=== PATIENT | female | born 1950 | race Caucasian/White ===

== ENCOUNTER 2022-10-20 11:11 | Emergency (ER) | payer MEDICARE, MEDICAID, SELFPAY ==
--- NOTE | ~2022-10-20 | CT_ITS ---
EXAMINATION: CT HEAD WITHOUT CONTRAST CLINICAL INFORMATION: Status post fall with head strike, rule out intracranial abnormality. COMPARISON: None available. TECHNIQUE: Contiguous axial imaging was performed from the skull base to vertex without intravenous administration of contrast. Coronal and sagittal reformatted images were obtained. This CT examination was performed using dose optimization techniques as appropriate, variously including the following: *Automated exposure control *Adjustment of mA and/or kV according to patient size (this includes techniques or standardized protocols for targeted exams where dose is matched to indication/reason for exam; i.e. extremities or head) *Use of iterative reconstruction technique DLP: 615.32 mGy-cm FINDINGS: There is mild widening of the cortical sulci and associated ventriculomegaly. The lateral ventricles are symmetrical. The third and fourth ventricles are in their normal midline position. The basilar and prepontine cisterns are unremarkable. Coarse physiologic calcifications are seen in the basal ganglia bilaterally. There is no acute intra or extracerebral abnormality. There is no mass effect or midline shift. Sections through the bony calvarium are unremarkable. The orbits are intact. The paranasal sinuses are clear. The mastoid air cells are clear. CT/CT head/brain wo IV con IMPRESSION: No acute intracranial pathology.
--- NOTE | ~2022-10-20 | XR_ITS ---
EXAMINATION: XR WRIST, RIGHT CLINICAL INFORMATION: Fall, trauma, pain COMPARISON: Radiographs right wrist 01/02/2010 TECHNIQUE: Right wrist is imaged in 4 views. FINDINGS: There is no fracture or dislocation. The ulnar variance is neutral. There is a small corticated ossicle just distal to the ulnar styloid, similar to remote prior exams. There are progressive osteoarthritic changes involving the first carpometacarpal joint. XR/XR wrist RT min 3V IMPRESSION: -No fracture or dislocation. -Osteoarthritis first carpometacarpal joint.
--- NOTE | ~2022-10-20 | CT_ITS ---
EXAMINATION: CT CERVICAL SPINE WITHOUT CONTRAST CLINICAL INFORMATION: Status post fall with head strike and neck pain. COMPARISON: None available. TECHNIQUE: Multiple axial images of the cervical spine were obtained without the administration of intravenous contrast. Coronal and sagittal reformatted images were obtained. This CT examination was performed using dose optimization techniques as appropriate, variously including the following: *Automated exposure control *Adjustment of mA and/or kV according to patient size (this includes techniques or standardized protocols for targeted exams where dose is matched to indication/reason for exam; i.e. extremities or head) *Use of iterative reconstruction technique DLP: 333.76 mGy-cm FINDINGS: There is straightening of the normal cervical lordosis with normal spinal alignment. Moderate to severe degenerative disc disease is seen at C5-6 and C6-7 with mild bilateral neural foraminal narrowing. The vertebral bodies are intact. The odontoid process is intact with moderate articulating degenerative changes. Mild multilevel bilateral facet arthropathy is seen. The spinous processes are intact. The cervical soft tissues are unremarkable. No lymphadenopathy. Incidental multinodular enlarged thyroid gland with dominant nodule in the lower pole measuring up to 3.6 cm (image 4, series 15). Small calcified and noncalcified nodules are seen laterally in the right apex measuring up to 0.[address]/CT cervical spine wo IV con IMPRESSION: 1. Straightening of the normal cervical lordosis may be secondary to positioning and/or muscle spasm. 2. Multilevel degenerative changes in the cervical spine without acute abnormality. 3. Incidental multinodular enlarged thyroid gland with dominant nodule in the lower pole. This is amenable to further evaluation with nonemergent thyroid ultrasound. 4. Small calcified and noncalcified nodules in the right apex measuring up to 0.5 cm. Following Fleischner Society guidelines, no imaging follow-up is recommended at this time.
[2022-10-20 11:28] VITALS: BP 168/74; PULSE 69; RESP 99; TEMP 36.6; O2SAT 98; BMI 31.1
--- NOTE | 2022-10-20 11:28 | ED_ITS ---
HPI - Fall General Chief Complaint: Fall <ROBE Whitlock Last Filed: 10/20/22 11:31> Stated Complaint: R wrist injury/ head injury <ROBE Whitlock Last Filed: 10/20/22 11:31> Time Seen by Provider: 10/20/22 11:56 <ROBE Whitlock Last Filed: 10/20/22 11:31> Source: patient <ROBE Morrison Last Filed: 10/20/22 14:29> Mode of arrival: ambulatory <ROBE Morrison Last Filed: 10/20/22 14:29> Limitations: no limitations <ROBE Morrison Last Filed: 10/20/22 14:29> History of Present Illness HPI Narrative: Patient is a 72 year old assigned female at with no reported medical history presenting to the emergency department today with right wrist pain aftera fall. Patient states that she missed a step and fell. Patient states that her right wrist and the right side of her head hurt. Patient denies any loss of consciousness. Patient denies any dizziness, lightheadedness, abdominal pain, nausea, vomiting, fever, chills, blurry vision, double vision, loss of vision, chest pain, difficulty breathing, shortness of breath, back pain, night sweats, pain with urination, increased urinary frequency, increased urinary urgency, blood in her urine or stool, syncope or a near syncopal episode, bowel incontinence, bladder incontinence, bowel retention, bladder retention, or any other complaints at this time. <ROBE Morrison Last Filed: 10/20/22 14:29> Onset (ago): minute(s) <ROBE Morrison Last Filed: 10/20/22 14:29> Fall from: standing <ROBE Morrison Last Filed: 10/20/22 14:29> Loss of consciousness: none <ROBE Morrison Last Filed: 10/20/22 14:29> Prolonged down time: no <ROBE Morrison Last Filed: 10/20/22 14:29> Context: tripped/slipped <ROBE Morrison Last Filed: 10/20/22 14:29> Related Data Allergies/Adverse Reactions: Allergies Allergy/AdvReac Type Severity Reaction Status Date / Time No Known Allergies Allergy Verified 10/20/22 11:33 <ROBE Whitlock - Last Filed: 10/20/22 11:31> Review of Systems Constitutional: Constitutional: Reports no additional constitutional complaints, Denies chills, Denies fever(s) and Denies night sweats <ROBE Morrison Last Filed: 10/20/22 14:29> Eyes: Eyes: Reports no additional eye complaints, Denies blurry vision, Denies change in vision, Denies diplopia, Denies eye discharge, Denies loss of vision and Denies eye pain <ROBE Morrison - Last Filed: 10/20/22 14:29> ENT: Denies dizziness <ROBE Morrison Last Filed: 10/20/22 14:29> Cardiovascular: Cardiovascular: Reports no additional cardiovascular complaints, Denies chest pain, Denies lightheadedness, Denies Loss of Consciousness and Denies dyspnea <ROBE Morrison Last Filed: 10/20/22 14:29> Respiratory: Respiratory: Reports no additional respiratory complaints and Denies dyspnea <ROBE Morrison - Last Filed: 10/20/22 14:29> Gastrointestinal: Gastrointestinal: Reports no additional gastrointestinal complaints, Denies abdominal pain, Denies melena, Denies hematochezia, Denies change in bowel habits and Denies change in stool character <ROBE Morrison Last Filed: 10/20/22 14:29> Genitourinary: Genitourinary: Denies hematuria, Denies urinary frequency, Denies dysuria, Denies urinary incontinence, Denies urinary hesitancy and Denies urinary urgency <ROBE Morrison Last Filed: 10/20/22 14:29> Musculoskeletal: Musculoskeletal: Reports no additional musculoskeletal complaints, Denies numbness and Denies tingling <ROBE Morrison Last Filed: 10/20/22 14:29> Comments: right wrist pain <ROBE Morrison Last Filed: 10/20/22 14:29> Neurologic: Denies dizziness, Denies loss of vision, Denies numbness and Denies tingling <ROBE Morrison Last Filed: 10/20/22 14:29> Psychiatric: Psychiatric: Reports no additional psychiatric complaints <ROBE Morrison - Last Filed: 10/20/22 14:29> Endocrine: Endocrine: Reports no additional endocrine complaints <ROBE Morrison - Last Filed: 10/20/22 14:29> Hematologic/Lymphatic: Hematologic/Lymphatic: Reports no additional hematologic/lymphatic complaints <ROBE Morrison - Last Filed: 10/20/22 14:29> Allergic/Immunologic: Allergic/Immunologic: Reports no additional allergic/immunologic complaints <ROBE Morrison - Last Filed: 10/20/22 14:29> PMFSH Past Medical History Attestation statement: The following information was validated with the patient. <ROBE Morrison - Last Filed: 10/20/22 14:29> Source: old records reviewed and nursing notes reviewed <ROBE Morrison - Last Filed: 10/20/22 14:29> Social History Social History: Social History Alcohol intake: never Smoked in Last 30 Days: No Use of substances other than those prescribed or required for medical reasons: No Advance Directives: Yes Advance Directives Information Provided: No Advance Directives on File: No <ROBE Whitlock - Last Filed: 10/20/22 11:31> Physical Exam Vital Signs: Vital Signs: Last Vital Signs Temp 98 F 10/20/22 11:28 Pulse 68 10/20/22 14:11 Resp 18 10/20/22 14:11 BP 152/62 H 10/20/22 12:33 Pulse Ox 99 10/20/22 12:33 O2 Del Method Room Air 10/20/22 12:33 BMI result Body Mass Index 31.1 <ROBE Whitlock - Last Filed: 10/20/22 11:31> Vital Signs: Last Vital Signs Temp 98 F 10/20/22 11:28 Pulse 68 10/20/22 14:11 Resp 18 10/20/22 14:11 BP 152/62 H 10/20/22 12:33 Pulse Ox 99 10/20/22 12:33 O2 Del Method Room Air 10/20/22 12:33 BMI result Body Mass Index 31.1 <ROBE Morrison - Last Filed: 10/20/22 14:29> Const: General: cooperative, no acute distress, alert and awake <ROBE Morrison - Last Filed: 10/20/22 14:29> Nutritional Appearance: well nourished <Yani Gibson PA - Last Filed: 10/20/22 14:29> Orientation/consciousness: patient oriented x3 <ROBE Morrison - Last Filed: 10/20/22 14:29> Limitations: no limitations <Yani Gibson [place] - Last Filed: 10/20/22 14:29> HEENT: Head: Yes normal to inspection and Yes atraumatic <ROBE Morrison - Last Filed: 10/20/22 14:29> Ears: hearing grossly normal bilaterally and external ears normal <Yani Gibson PA - Last Filed: 10/20/22 14:29> General nose exam: Normal external nose present, no nasal discharge noted and no epistaxis <Yani Gibson [place] - Last Filed: 10/20/22 14:29> Face and sinus: Yes normal facial exam, No abrasion and No laceration <Yani Gibson [place] - Last Filed: 10/20/22 14:29> Mouth: Normal oral and palatal mucosa present, no drooling and no muffled voice <Yani Gibson [place] - Last Filed: 10/20/22 14:29> Eyes: General: appearance normal, both eyes and all related structures <ROBE Morrison - Last Filed: 10/20/22 14:29> Periorbital: periorbital findings normal <Yani Gibson PA - Last Filed: 10/20/22 14:29> Eyelids: Yes eyelids normal <Yani Gibson PA - Last Filed: 10/20/22 14:29> Conjunctivae: conjunctivae normal <ROBE Morrison - Last Filed: 10/20/22 14:29> Pupils: Equal, round and reactive pupils present <Yani Gibson PA - Last Filed: 10/20/22 14:29> EOM: EOMs intact bilaterally <ROBE Morrison - Last Filed: 10/20/22 14:29> Neck: Neck: Yes normal visual inspection, Yes full ROM and Yes no lymphadenopathy <Yani Robersonamanda [place] - Last Filed: 10/20/22 14:29> Chest: Chest palpation & inspection: normal inspection of the chest <Yanisanthosh RobersonROBE patel - Last Filed: 10/20/22 14:29> Resp: Effort & Inspection: normal respiratory effort and able to speak in complete sentences <Yani Robersonamanda [place] - Last Filed: 10/20/22 14:29> GI: Inspection: Yes normal to inspection <Yani RobersonROBE patel - Last Filed: 10/20/22 14:29> Neuro: General: patient oriented x3 and moves all extremities <Yani Robersonamanda [place] - Last Filed: 10/20/22 14:29> Cranial nerves: Yes Equal, round and reactive pupils present <Yani RobersonROBE patel - Last Filed: 10/20/22 14:29> Cognition (Neuro): normal cognition <Yani Robersonamanda [place] - Last Filed: 10/20/22 14:29> Motor exam (neuro): 5/5 motor strength present throughout <Yani Robersonamanda [place] - Last Filed: 10/20/22 14:29> Sensory Exam: Normal double simultaneous stimulation for sensation <Yani RobersonROBE patel - Last Filed: 10/20/22 14:29> Coordination: [id number] test normal <Yani Robersonamanda [place] - Last Filed: 10/20/22 14:29> Extrem: Other: small abrasion to the right ulna styloid, otherwise unremarkable <Yanisanthosh RobersonROBE patel - Last Filed: 10/20/22 14:29> General: Yes full ROM and Yes capillary refill normal <Yani Robersonamanda [place] - Last Filed: 10/20/22 14:29> Psych: Appearance: grossly normal <Yanisanthosh RobersonROBE patel - Last Filed: 10/20/22 14:29> Mental Status: mental status grossly normal <Yanisanthosh RobersonROBE patel - Last Filed: 10/20/22 14:29> Affect: normal affect <Yanisanthosh RobersonROBE patel - Last Filed: 10/20/22 14:29> Attitude: cooperative <ROBE Morrison - Last Filed: 10/20/22 14:29> Thought process: Normal thought process present <ROBE Morrison - Last Filed: 10/20/22 14:29> Thought content: Normal thought content present <ROBE Morrison Last Filed: 10/20/22 14:29> Insight: Good insight present (Psych) <ROBE Morrison - Last Filed: 10/20/22 14:29> Course Course Course Narrative: RME - 72 y/o female with history of ocular myasthenia gravis, s/p thyroid biopsy this morning who presents to the ER for evaluation of right wrist pain and headache s/p mechanical fall w/ headstrike about 30 mins [employer]. Tripped on the curb, put her right hand out to catch herself and hit her forehead on the cement. No LOC. Not on anticoagulation. [place] weak and not right shortly after. c/o right wrist pain. Plan: CT head/c-spine given age and headstrike, right wrist X-rays <ROBE Whitlock - Last Filed: 10/20/22 11:31> Procedures Orthopedic Splinting/Casting Injury #1: Side: right <ROBE Morrison Last Filed: 10/20/22 14:29> Upper Extremity Injury Location: wrist <ROBE Morrison Last Filed: 10/20/22 14:29> Upper Extremity Immobilizer: thumb spica <ROBE Morrison Last Filed: 10/20/22 14:29> Medical Decision Making Medical Decision Making MDM Narrative: Patient is a 72 year old assigned female at with no reported medical history presenting to the emergency department today with right wrist pain. Patient's physical exam showed showed a small abrasion to the right ulnar styloid but was otherwise unremarkable. Patient's right wrist x-ray showed no acute process. Patient's head CT was unremarkable. Patient's c-spine CT showed a thyroid nodule - however, the patient had this nodule biopsied this morning. I explained my physical exam findings as well as all test results to the patient. I answered all questions asked by the patient. Patient's right wrist was splinted in a velco thumb spica splint for comfort. I stressed the importance of the patient taking her medication as prescribed. I stressed the importance of the patient following up with her primary care provider and an orthopedic p rovider. I stressed the importance of the patient returning to the emergency department immediately if her symptoms were to worsen or if she were to develop any dizziness, shortness of breath, difficulty breathing, chest pain, blurry vision, loss of vision, nausea, vomiting, abdominal pain, fever, chills, back pain, or any other complaints. Patient verbalized agreement and understanding with this treatment plan and discharge. <ROBE Morrison - Last Filed: 10/20/22 14:29> Differential Diagnosis Differential Diagnoses: The differential diagnosis associated with the presentation includes <ROBE Morrison Last Filed: 10/20/22 14:29> fall, right wrist sprain, right wrist pain <ROBE Morrison Last Filed: 10/20/22 14:29> Independent Interpretation I performed an independent interpretation of an: Plain X-Ray and CT Scan <ROBE Morrison - Last Filed: 10/20/22 14:29> Interpretation: My interpretation is in agreement with the radiologist's impression of these imaging studies. EXAMINATION: XR WRIST, RIGHT CLINICAL INFORMATION: Fall, trauma, pain? COMPARISON: Radiographs right wrist 01/02/2010? TECHNIQUE: Right wrist is imaged in 4 views. FINDINGS: There is no fracture or dislocation. The ulnar variance is neutral. There is a small corticated ossicle just distal to the ulnar styloid, similar to remote prior exams. There are progressive osteoarthritic changes involving the first carpometacarpal joint.? XR/XR wrist RT min 3V IMPRESSION: -No fracture or dislocation. -Osteoarthritis first carpometacarpal joint. Dictated By: Ricci Martinez MD Signed By: Electronically signed by Ricci Martinez MD 10/20/22 1213 EXAMINATION: CT HEAD WITHOUT CONTRAST CLINICAL INFORMATION: Status post fall with head strike, rule out intracranial abnormality.? COMPARISON: None available.? TECHNIQUE: Contiguous axial imaging was performed from the skull base to vertex without intravenous administration of contrast. Coronal and sagittal reformatted images were obtained. This CT examination was performed using dose optimization techniques as appropriate, variously including the following: *Automated exposure control *Adjustment of mA and/or kV according to patient size (this includes techniques or standardized protocols for targeted exams where dose is matched to indication/reason for exam; i.e. extremities or head) *Use of iterative reconstruction technique DLP: 615.32 mGy-cm FINDINGS: There is mild widening of the cortical sulci and associated ventriculomegaly. The lateral ventricles are symmetrical. The third and fourth ventricles are in their normal midline position. The basilar and prepontine cisterns are unremarkable. Coarse physiologic calcifications are seen in the basal ganglia bilaterally. There is no acute intra or extracerebral abnormality. There is no mass effect or midline shift. Sections through the bony calvarium are unremarkable. The orbits are intact. The paranasal sinuses are clear. The mastoid air cells are clear. CT/CT head/brain wo IV con IMPRESSION: No acute intracranial pathology Dictated By: David Moura MD Signed By: Electronically signed by David Moura MD 10/20/22 1343 EXAMINATION: CT CERVICAL SPINE WITHOUT CONTRAST CLINICAL INFORMATION: Status post fall with head strike and neck pain.? COMPARISON: None available.? ? TECHNIQUE: Multiple axial images of the cervical spine were obtained without the administration of intravenous contrast. Coronal and sagittal reformatted images were obtained.? This CT examination was performed using dose optimization techniques as appropriate, variously including the following: *Automated exposure control *Adjustment of mA and/or kV according to patient size (this includes techniques or standardized protocols for targeted exams where dose is matched to indication/reason for exam; i.e. extremities or head) *Use of iterative reconstruction technique DLP: 333.76 mGy-cm FINDINGS: There is straightening of the normal cervical lordosis with normal spinal alignment. Moderate to severe degenerative disc disease is seen at C5-6 and C6-7 with mild bilateral neural foraminal narrowing. The vertebral bodies are intact. The odontoid process is intact with moderate articulating degenerative changes. Mild multilevel bilateral facet arthropathy is seen. The spinous processes are intact. The cervical soft tissues are unremarkable. No lymphadenopathy. Incidental multinodular enlarged thyroid gland with dominant nodule in the lower pole measuring up to 3.6 cm (image 4, series 15). Small calcified and noncalcified nodules are seen laterally in the right apex measuring up to 0.[address]/CT cervical spine wo IV con IMPRESSION: 1.? Straightening of the normal cervical lordosis may be secondary to positioning and/or muscle spasm. 2.? Multilevel degenerative changes in the cervical spine without acute abnormality. 3.? Incidental multinodular enlarged thyroid gland with dominant nodule in the lower pole. This is amenable to further evaluation with nonemergent thyroid ultrasound. 4.? Small calcified and noncalcified nodules in the right apex measuring up to 0.5 cm. Following Fleischner Society guidelines, no imaging follow-up is recommended at this time. Dictated By: David Moura MD Signed By: Electronically signed by David Moura MD 10/20/22 1341 <ROBE Morrison - Last Filed: 10/20/22 14:29> Discharge Plan Discharge Clinical Impression: Right wrist sprain <ROBE Whitlock - Last Filed: 10/20/22 11:31> Patient Disposition: Home, Self-Care <ROBE Whitlock - Last Filed: 10/20/22 11:31> Instructions: Wrist Sprain (ED) <ROBE Whitlock - Last Filed: 10/20/22 11:31> Additional Instructions: Follow up with your primary care provider. Return to the emergency department immediately if your symptoms worsen or if you develop any dizziness, shortness of breath, difficulty breathing, chest pain, blurry vision, loss of vision, nausea, vomiting, abdominal pain, fever, chills, back pain, or any other complaints. <ROBE Whitlock - Last Filed: 10/20/22 11:31> Referrals: [facility] [place] [facility] [Provider Group] (Call to establish and follow up with an orthopedic provider for your right wrist sprain. ) Jessica Cuevas NP [Primary Care Provider] - <ROBE Whitlock - Last Filed: 10/20/22 11:31> Interventions: ED Discharge Assessment Last Done: 10/20/22 14:12 <ROBE Whitlock - Last Filed: 10/20/22 11:31> Discharge Date/Time: 10/20/22 14:13 <ROBE Whitlock - Last Filed: 10/20/22 11:31> Print Language: Welsh <ROBE Whitlock - Last Filed: 10/20/22 11:31>
[2022-10-20 12:33] VITALS: BP 152/62; PULSE 62; RESP 18; O2SAT 99
[2022-10-20 14:11] VITALS: PULSE 68; RESP 18
== END 2022-10-20 14:13 | disposition home or self-care (01) ==
PROVIDERS: Emergency Provider Emergency Medicine Emergency Medical Services; PCP Nurse Practitioner Gerontology
DX: S63.501A Unspecified sprain of right wrist, initial encounter (principal); W10.1XXA Fall (on)(from) sidewalk curb, initial encounter; Y93.01 Activity, walking, marching and hiking; Y92.481 Parking lot as the place of occurrence of the external cause; Y99.9 Unspecified external cause status
CPT/HCPCS: 29125; 70450; 72125; 73110; 99284